=== PATIENT | male | born 1985 | race Caucasian/White ===

== ENCOUNTER 2025-02-16 00:11 | Day surgery (SDC) | payer OTHER, SELFPAY ==
[2025-02-10 08:43] VITALS: BMI 32.1
--- NOTE | 2025-02-10 08:54 | PC.NURSE ---
Addendum entered by Brooks Barajas RN 02/10/25 09:10: Correction, patient told no food or drink after midnight. Original Note: Report to the Outpatient Waiting Room, entrance under the green pavilion located off [facility], at time _0600_ on date _[id number]_. Planned Procedure Time: _729_. Time changes happen often and if your time is changed the preop area will call you the afternoon before. - You and your visitor will be asked to self-screen and do not enter if you have any COVID symptoms. Please call surgeon if you need to reschedule. - A mask is optional within the hospital at this time. Patients may have clear liquids (water, carbonated beverages, clear teas, apple juice) until 3 hours prior to surgery with a maximum of 20 ounces. - No food from midnight until time of surgery and no smoking, or chewing tobacco (or any form of nicotine). No chewing gum, candy or mints. Take only the following medications with a SIP of water on the morning of surgery: ___Pain pill if needed.____ DO NOT STOP ANY OF YOUR OTHER PRESCRIPTION MEDICATIONS PRIOR TO SURGERY EXCEPT THE FOLLOWING Hold all vitamins and supplements for 3 days per anesthesiologist. Celebrex per Dr Verdugo instructions. Medications to discontinue per physician Date to take last kbna__[phone]____ Please no make-up, nail yakut, hairspray, perfume, deodorant, or body powder the day of surgery. No jewelry (including any body piercings) or valuables the day of surgery, leave them at home. Please take a shower or bath the night before, or the morning of, surgery with an antibacterial soap. Wear comfortable, loose fitting clothing. - Jewelry must be removed prior to entering the operating room. Rings and piercings that are not removed may be cut off. - The hospital will not accept responsibility for valuables. - Please leave all valuables, including medications, at home the day of surgery. If you are going home after surgery, a licensed full service vending driver must drive you home. - NO public transportation without another adult if you receive anesthesia. - We recommend that an adult stay with you for 24 hours following discharge. - We also recommend that you do not drive, make important decision, drink alcoholic beverages, or take any drugs that were not prescribed by your health care provider for at least 24 hours after your discharge time. Follow any additional instructions given to you from your surgeon. Telephone instructions given to __Joe___and asked if any additional questions and then verbalized understanding. Patient advised to call surgeon office or pre surgery nurse liaison [phone] if any additional questions.
[2025-02-16] VITALS (7 sets, daily range): BP systolic 114–142; BP diastolic 65–78; PULSE 57–81; RESP 14–20; TEMP 36.7; O2SAT 98–100; BMI 32.1
--- OUTSIDE RECORDS SUMMARY | 2025-02-16 00:14 | XMS_ITS | Clinical Summary ---
Author Organization [facility] Address [address] [place] [address] Phone Care Team Providers Care Tire Changer Name Role Phone Unavailable Primary Care Provider Unavailabl e Allergies No known active allergies Medications doxycycline monohydrate (ORACEA) 40 mg Extended Release 24 hour capsule Take by mouth. Active omeprazole (PriLOSEC) 20 mg Tablet, Delayed Release (E.C.) Take by mouth daily before breakfast. Active vitamin E 200 unit Capsule Take 800 Units by mouth daily. Active zolpidem ER 12.5 mg tablet,extended release,multipha se Take 12.5 mg by mouth Continuous as needed. 2 Active HYDROcodone-acet aminophen (HYCET) 7.5-325 mg/15 mL SolutionIndicati ons:Obesity (BMI 35.0-39.9 without comorbidity) Take 15 mL by mouth every 6 hours as needed for Pain. Max Daily Amount: 60 mL 280 mL 10/29/2022 1:59 PM COMPUTING SYSTEMS MECHANIC 3 Active famotidine (PEPCID) 20 mg tablet Take 1 Tablet (20 mg) by mouth 2 times daily. 60 Tablet 2 10/29/2022 1:59 PM COMPUTING SYSTEMS MECHANIC 3 Active ondansetron (Zofran) 4 mg Tablet Take 1 Tablet (4 mg) by mouth every 8 hours as needed for Nausea/Vomiting . 50 Tablet 10/29/2022 1:59 PM COMPUTING SYSTEMS MECHANIC 3 Active sennosides (SENOKOT) 8.6 mg tablet Take 1 Tablet (8.6 mg) by mouth 1 time daily as needed for Constipation. 10 Tablet 10/29/2022 1:59 PM COMPUTING SYSTEMS MECHANIC 3 Active Active Problems Problem Noted Date Diagnosed Date Lumbago 10/29/2022 Obstructive sleep apnea syndrome 10/29/2022 Obesity with body mass index 30 or greater 10/29 Sacroiliac pain 10/29/2022 Esophageal reflux 10/29/2022 Encounter for gastric sleeve procedure 3 Immunizations Immunization Administration Dates Next Due (M-M-R II/PRIORIX)(12 MO UP) MEASLES, MUMPS AND RUBELLA VIRUS VACCINE, 0.5 ML IM/SUBCUT 06/20/2000,04/29/1995,06/17/1986 (PFIZER GUERLINE)(12 YR UP PRIMA RY SERIES) COVID-19 VACCINE - EMERGENCY USE AUTHORIZATION, MRNA, GUERLINE(PF) 30 MCG/0.3 ML IM SUSP 12/30/2021 (PFIZER)(12 YR UP) COVID-19 VACCINE - EMERGENCY USE AUTHORIZATION, MRNA, [id number](PF) 30 MCG/0.3 ML IM SUSP 09/24/2022,06/28/2021,06/07/2021 (RECOMBIVAX HB/ENGERIX-B)(0- 19 YRS) HEPATITIS B VACCINE 5 MCG/0.5 ML OR 10 MCG/0.5 ML PED OR ADOL 3 DOSE (PF), IM 12/25/2000,06/20/2000,05/09/2000 (TDVAX)(7 YRS UP) TETANUS AN D DIPHTHERIA TOXOIDS, ADSORBED (2 LF OF TETANUS TOXOID AND 2 LF OF DIPHTHERIA TOXOID), 0.5ML (PF), IM 11/16/2011,05/09/2000 Diptheria, Tetanus Toxoids, And Whole Cell Pertussis Vaccine (DTP), for intramuscular use 05/15/1990,02/07/1986,02/15/1985,10/29 INFLUENZA VACCINE QUADRIVALE NT 6 MOS UP CELL DERIVED PF IM 08/18/2020 INFLUENZA VACCINE QUADRIVALE NT 6 MOS UP PF IM 08/03/2019,07/04/2016 Poliovirus Vaccine Live Oral 05/09/2000, 05/09/1990,02/07/1986,02/15,1984 Social History Tobacco Use Types Packs/Day Years Used Date Smoking Tobacco: Former Cigarettes 1 12 Tobacco Cessation:Counseling Given: Not Answered Alcohol Use Standard Drinks/Week Comments Yes 0 (1 standard drink = 0.6 oz pur e alcohol) socially Sex and Gender Information Value Date Recorded Sex Assigned at Not on file Legal Sex Male 1:14 PM CDT Gender Identity Not on file Sexual Orientation Not on file Last Filed Vital Signs Vital Sign Reading Time Taken Comments Blood Pressure 127/65 10/29/2022 11:32 AM COMPUTING SYSTEMS MECHANIC Pulse 76 10/29/2022 11:32 AM COMPUTING SYSTEMS MECHANIC Temperature 36.6 C (97.8 F) 10/29/2022 8:54 AM COMPUTING SYSTEMS MECHANIC Respiratory Rate 16 10/29/2022 11:32 AM COMPUTING SYSTEMS MECHANIC Oxygen Saturation 99% 10/29/2022 11:32 AM COMPUTING SYSTEMS MECHANIC Inhaled Oxygen Concentration - - Weight 139 kg (306 lb 6.4 oz) 10/28/2022 6:00 AM COMPUTING SYSTEMS MECHANIC Height 188 cm (6' 2 ) 10/18/2022 10:05 AM COMPUTING SYSTEMS MECHANIC Body Mass Index 39.34 10/18/2022 10:05 AM COMPUTING SYSTEMS MECHANIC Plan of Treatment Health Maintenance Due Date Last Done Comments DIABETES ANNUAL FOOT EXAM 2002 DIABETES ANNUAL RETINAL EXAM 2002 DIABETES HBA1C Q 6 MONTHS 2002 DIABETES MICROALBUMIN ANNUAL SCREEN 2002 LDL CHOLESTEROL ANNUAL 2002 DTAP/TDAP/TD VACCINES (5 - Tdap) 11/17/2011 11/16/2011, 05/09/2000, 05/15/1990, Additional history exists INFLUENZA VACCINE (#1) 2024 , 08/03/2019, 07/04/2016 COVID-19 Vaccine ( season) 2024 09/24/2022, 12/30/2021, 06/28/2021, Additional history exists HEPATITIS B VACCINES Completed 12/25/2000, 06/20/2000, 05/09/2000 HPV VACCINES Aged Out No longer eligi ble based on patient's age to complete this topic Medical Devices Implanted Type Area Dairy Feed Mixing Operator Device Identifier Shelf Expiration Date Model / Serial / Lot Seamguard Endogia 60 Blk [id number] - [id number] Implanted:Qt y: 1 on 10/28/2022 by Maegan Victoria MD at [facility] N/A: Stomach [employer] [id number] 04/30/2025 12BSGTRI 60B / / [id number] Seamguard Endogia 60 Blk [id number] - [id number] Implanted:Qt y: 1 on 10/28/2022 by Maegan Victoria MD at [facility] N/A: Stomach [employer] [id number] 03/09/2025 12BSGTRI 60B / / [id number] Seamguard Endogia 60 Prpl [id number] - [id number] Implanted:Qt y: 1 on 10/28/2022 by Maegan Victoria MD at [facility] N/A: Stomach [employer] [id number] 06/11/2025 12BSGTRI 60P / / [id number] Seamguard Endogia 60 Prpl [id number] - [id number] Implanted:Qt y: 1 on 10/28/2022 by Maegan Victoria MD at [facility] N/A: Stomach [employer] [id number] 06/11/2025 12BSGTRI 60P / / [id number] Seamguard Endogia 60 Prpl [id number] - [id number] Implanted:Qt y: 1 on 10/28/2022 by Maegan Victoria MD at [facility] N/A: Stomach [employer] [id number] 06/11/2025 12BSGTRI 60P / / [id number] Brick Tender Endoclip Iii 5mm W/Cliplogic [id number] - [id number] Implanted:Qt y: 1 on 10/28/2022 by Maegan Victoria MD at [facility] N/A: Stomach [employer] [id number] 02/26/2025 [id number] / / [id number] Endo Clip Ii 10mm [id number] - [id number] Implanted:Qt y: 1 on 10/28/2022 by Maegan Victoria MD at [facility] N/A: Stomach [employer] [id number] 12/27/2026 [id number] / / [id number] Y Insurance [facility] BENEFIT PLANS RX [facility] [employer] Advance Directives For more information, please contact: [phone] * Full Code (Latest Code Status on File) Date Activated Date Inactivated Comments 10/28/2022 11:06 AM 10/29/2022 4:21 PM * Full Code Date Activated Date Inactivated Comments 10/28/2022 6:14 AM 10/28/2022 11:06 AM
--- OUTSIDE RECORDS SUMMARY | 2025-02-16 00:14 | XMS_ITS | Clinical Summary ---
Author Organization [facility] Address [address] [place] [address] Care Team Providers Care Intrusion Analyst Name Role Phone Unavailable Primary Care Provider Unavailabl e Social History Tobacco Use Types Packs/Day Years Used Date Smoking Tobacco: Never Assessed Sex and Gender Information Value Date Recorded Sex Assigned at Not on file Legal Sex Male 3:16 PM CDT Gender Identity Not on file Sexual Orientation Not on file Plan of Treatment Not on file
[2025-02-16] MEDS: LACTATED RINGERS 1,000 ML 30 ML IV CONT ×2 (06:25→08:45)
--- NOTE | 2025-02-16 06:48 | WPDANESEPPF ---
Anes - Initial Pre Proc Eval Procedure: Operation Date: 02/16/25 07:30 Proposed Procedures p Panniculectomy - Howard Petersen MD Date/Time: 02/16/25 06:48 Surgeon: Howard Petersen MD Pre Op Diagnosis: excess skin, s/p bariactic surgery Patient Data Age: 39 Gender: M Height: 1.88 m Weight: 113.6 kg Last Vital Signs Temp 36.7 C 02/16/25 06:11 Pulse 57 L 02/16/25 06:11 Resp 16 02/16/25 06:11 BP 114/66 02/16/25 06:11 Pulse Ox 100 02/16/25 06:11 O2 Del Method Room Air 02/16/25 06:11 Allergies Allergy/AdvReac Type Severity Reaction Status Date / Time No Known Allergies Allergy Verified 02/16/25 06:22 Home Medications Medication Instructions Recorded Confirmed Type celecoxib 200 mg capsule 200 mg PO HS 02/10/25 02/16/25 History cranitine 1 tbsp PO DAILY 02/10/25 02/10/25 History creatine monohydrate 5,000 mg oral 5,000 mg PO DAILY 02/10/25 02/16/25 History powder packet cyanocobalamin (vitamin B-12) 1,000 mcg PO DAILY 02/10/25 02/10/25 History 1,000 mcg tablet (Vitamin B-12) diphenhydramine HCl 25 mg capsule 25 mg PO HS 02/10/25 02/16/25 History (Aler-Cap) doxycycline monohydrate 40 mg 40 mg PO DAILY 02/10/25 02/16/25 History capsule,immediate - delay release (Oracea) hydrocodone 5 mg-acetaminophen 325 1 tablet PO Q6H PRN pain 02/10/25 02/10/25 History mg tablet magnesium glycinate 100 mg (as 800 mg PO DAILY 02/10/25 02/16/25 History glycinate) tablet (Mag Glycinate) rlpxlxyt-cmdezvrg-wkil 45 mg-folic 1 cap PO DAILY 02/10/25 02/16/25 History acid 800 mcg-vit K 120 mcg capsule (Bariatric Multivitamins) nutrafol 4 cap PO HS 02/10/25 02/16/25 History omeprazole 20 mg capsule,delayed 20 mg PO HS 02/10/25 02/16/25 History release testosterone enanthate 75 mg/0.5 75 mg subcut WEEKLY 02/10/25 02/16/25 History mL subcutaneous auto-injector (Xyosted) Patient hx anesthesia problems: none Family hx anesthesia problems: none Results Review: All pre-operative results and documents have been reviewed as part of the pre-operative evaluation. [facility] Social History Social History Smoking status: Never smoker Tobacco type: cigarettes Alcohol intake: current Anes - Eval Final PreProcedure Day of Procedure 02/16/25 06:48 Patient weight: obese Heart: regular rate and rhythm Lungs: clear to auscultation Airway: Mallampati scale class II Neurological: alert and oriented Last oral intake: >/= 8 hours ASA classification: II Emergent: no Anesthetic plan: proceed Anesthesia type and monitoring: general LMA and standard monitoring Results Review: All pre-operative results and documents have been reviewed as part of the pre-operative evaluation. Informed Consent: The patient's anesthetic plan and its attendant risks and benefits were discussed with the patient/family/POA. Questions were solicited and answers provided to the satisfaction of the patient/family/POA.
--- NOTE | 2025-02-16 06:50 | WPDHPUPDATE1 ---
History and Physical Update Update Date/Time: 02/16/25 06:50 Patient seen and examined in pre-operative holding area. No interval change in medical history or symptoms. Patient remembers previous discussion of benefits and alternatives to procedure. Continues to desire to proceed with infraumbilical panniculectomy. I reviewed the risks including but not limited to bleeding ,infection, asymmetry, undesireable cosmetic appearance, partial/total skin/umbilicus loss, no change or worsening of symptoms, change in sensation, seroma. I discussed the possible use of assistants and their level of participation in the case. Patient stated understanding and signed the consent form wishing to proceed
--- NOTE | 2025-02-16 06:51 | P.OP_ITS ---
Procedure Note - Detailed Date of Procedure 02/16/25 Pre-op Diagnosis excess skin, s/p bariactic surgery Post-op Diagnosis Same Procedure Performed infraumbilical panniculectomy and excision excess skin/tissue hips/flanks Surgeon Howard Petersen MD Electric Meter Repairer Helper leslee dunaway pa-c Anesthesia General Description of Procedure Patient was seen in the preoperative holding area where the consent form was signed and initial markings the pannicular skin fold were marked along with the anterior superior iliac spines with the patient standing. Patient was taken back to the operating room placed on the table in the supine position. Time-out was performed with Anesthesia, surgeon, and staff agreeing on patient's name, site, and surgery to be performed. SCDs were placed on the lower extremities and inflated. Antibiotics were given IV. After general anesthesia was administered the abdomen was prepped and draped in usual sterile fashion. I further designed my skin incisions starting 9 cm above the base of the penis and upward stretch extending horizontally and then taking this superolaterally past the anterior superior iliac spines for planned removal of the excess skin and subcutaneous tissue that extended to the lateral hips and flank area bilaterally in addition to the infraumbilical pannus. I made this incision with 10 blade scalpel through skin and dermis. Bovie cautery was used to dissect through subcutaneous tissue down to rectus fascia. I proceeded with elevating this pannicular skin flap below the umbilicus. I irrigated with normal saline. Hemostasis with Bovie cautery. Using Montezuma clamps to push the inferior skin flap superiorly I marked out the amount of resection for the superior skin flap. This was incised with 10 blade scalpel and excised with Bovie cautery. The specimen [id number]. Montezuma clamps were used to provisionally fix all this skin flap. Ten JPS were placed along the incision coming out laterally and secured with 3-0 nylon drain stitch. 3-0 V lock suture was used for Calista's fascia. 2-0 Vicryl was used further for Calista's fascia and dermal closure. 4- 0 Monocryl was used for subcuticular closure. There was good symmetry to each side of the skin flap. I injected 20 cc of 1% lidocaine with epinephrine and 0.5% Marcaine plain along the incision. A dressing of Mastisol, Steri-Strips, 4 x 4, ABDs and an abdominal binder were applied. The drains were hooked to bulb suction. The patient was awakened from anesthesia and transferred to the recovery room in stable condition. Complications: None Estimated blood loss: 30 cc Disposition: Patient tolerated the procedure well and will be going home later today Leslee Dunaway PA-C was essential for positioinig, retraction, hemostasis, closure and dressing placement G Billing Surgery - Charge Forward: Surgery Billing ([id number], 59 same for leslee adding modifier )
[2025-02-16] MEDS: SCOPOLAMINE 1 MG PATCH 1 PATCH TRANSDERM (07:00)
[2025-02-16] MEDS: BUPivacaine HCL 0.5% PF 30 ML VIAL INFILTRATE (07:35)
[2025-02-16] MEDS: ceFAZolin 2 GM/D5W 50 ML 2 GM/50 ML BAG IVPB (07:35)
[2025-02-16] MEDS: LIDO 1%/EPINEPHRINE 1:100,000 50 ML VIAL 30 ML INFILTRATE (08:15)
[2025-02-16] MEDS: fentaNYL CITRATE INJ (*CRX) 100 MCG/2 ML VIAL 25 MCG IV PUSH ×8 (09:03→09:19)
[2025-02-16] MEDS: oxyCODONE HCL (*CRX) 5 MG TAB IR PO (09:49)
== END 2025-02-16 10:20 | disposition home or self-care (01) ==
PROVIDERS: Visit Provider Plastic Surgery
PROC: 0JB80ZZ Excision of Abdomen Subcutaneous Tissue and Fascia, Open Approach (ICD-10-PCS; CPT 15830; principal; 2025-02-16 07:30)
DX: L98.7 Excessive and redundant skin and subcutaneous tissue (principal); Z98.84 Bariatric surgery status; E66.9 Obesity, unspecified; Z68.32 Body mass index [BMI] 32.0-32.9, adult
CPT/HCPCS: 15830; 15834; 88300; A9270; J0690; J1100; J1171; J2003; J2004; J2250; J2405; J2704; J3010; J7120

== ENCOUNTER 2025-06-22 01:52 | Day surgery (SDC) | payer OTHER, SELFPAY ==
--- NOTE | 2025-06-15 12:36 | PC.NURSE ---
Report to the Outpatient Waiting Room, entrance under the green pavilion located off [facility], at time _0700_ on date _[id number]_. Planned Procedure Time: _0900_.? Time changes happen often and if your time is changed the preop area will call you the afternoon before. - You and your visitor will be asked to self-screen and do not enter if you have any COVID symptoms. Please call surgeon if you need to reschedule. - A mask is optional within the hospital at this time. Patients may have clear liquids (water, carbonated beverages, clear teas, apple juice) until 3 hours prior to surgery with a maximum of 20 ounces. - No food from midnight until time of surgery and no smoking, or chewing tobacco (or any form of nicotine). No chewing gum, candy or mints. Take only the following medications with a SIP of water on the morning of surgery: __None DO NOT STOP ANY OF YOUR OTHER PRESCRIPTION MEDICATIONS PRIOR TO SURGERY EXCEPT THE FOLLOWING Hold all vitamins and supplements for 3 days per anesthesiologist. Medications to discontinue per physician Date to take last wptq___[phone]___ Please no make-up, nail vatican citizen, hairspray, perfume, deodorant, or body powder the day of surgery.? No jewelry (including any body piercings) or valuables the day of surgery, leave them at home.? Please take a shower or bath the night before, or the morning of, surgery with an antibacterial soap.? Wear comfortable, loose fitting clothing.? - Jewelry must be removed prior to entering the operating room.? Rings and piercings that are not removed may be cut off. - The hospital will not accept responsibility for valuables.? - Please leave all valuables, including medications, at home the day of surgery. If you are going home after surgery, a licensed otr truck driver must drive you home.? - NO public transportation without another adult if you receive anesthesia. - We recommend that an adult stay with you for 24 hours following discharge. - We also recommend that you do not drive, make important decision, drink alcoholic beverages, or take any drugs that were not prescribed by your health care provider for at least 24 hours after your discharge time. Follow any additional instructions given to you from your surgeon. Telephone instructions given to __Joseph__and asked if any additional questions and then verbalized understanding. Patient advised to call surgeon office or pre surgery nurse liaison [phone] if any additional questions.
[2025-06-15 12:45] VITALS: BMI 32.1
--- NOTE | 2025-06-15 12:52 | PC.NURSE ---
Report to the Outpatient Waiting Room, entrance under the green pavilion located off [facility], at time _0700_ on date _[id number]_. Planned Procedure Time: _0900_.? Time changes happen often and if your time is changed the preop area will call you the afternoon before. - You and your visitor will be asked to self-screen and do not enter if you have any COVID symptoms. Please call surgeon if you need to reschedule. - A mask is optional within the hospital at this time. - No food or drink from midnight until time of surgery and no smoking, or chewing tobacco (or any form of nicotine). No chewing gum, candy or mints. Take only the following medications with a SIP of water on the morning of surgery: __None DO NOT STOP ANY OF YOUR OTHER PRESCRIPTION MEDICATIONS PRIOR TO SURGERY EXCEPT THE FOLLOWING Hold all vitamins and supplements for 3 days per anesthesiologist. Medications to discontinue per physician Date to take last nwzx___[phone]___ Please no make-up, nail equatorial guinean, hairspray, perfume, deodorant, or body powder the day of surgery.? No jewelry (including any body piercings) or valuables the day of surgery, leave them at home.? Please take a shower or bath the night before, or the morning of, surgery with an antibacterial soap.? Wear comfortable, loose fitting clothing.? - Jewelry must be removed prior to entering the operating room.? Rings and piercings that are not removed may be cut off. - The hospital will not accept responsibility for valuables.? - Please leave all valuables, including medications, at home the day of surgery. If you are going home after surgery, a licensed bulk truck driver must drive you home.? - NO public transportation without another adult if you receive anesthesia. - We recommend that an adult stay with you for 24 hours following discharge. - We also recommend that you do not drive, make important decision, drink alcoholic beverages, or take any drugs that were not prescribed by your health care provider for at least 24 hours after your discharge time. Follow any additional instructions given to you from your surgeon. Telephone instructions given to __Joseph__and asked if any additional questions and then verbalized understanding. Patient advised to call surgeon office or pre surgery nurse liaison [phone] if any additional questions.
[2025-06-22] VITALS (14 sets, daily range): BP systolic 116–158; BP diastolic 58–77; PULSE 62–82; RESP 12–18; TEMP 36.1–36.6; O2SAT 97–100; BMI 31.9
--- OUTSIDE RECORDS SUMMARY | 2025-06-22 01:56 | XMS_ITS | Patient Health Record ---
Author Organization [facility] Address [address] [place], [place] [id number] Care Team Providers Care Hogshead Head Matcher Name Role Phone TANG SHEPARD Unavailable [phone] Maritza Nava Unavailable Unavailable Reason For Referral No Information Medications Medication SIG (Take, Route, Frequency, Duration) Notes Start Date End Date Status acetaminophen 325 MG / hydrocodone bitartrate 5 MG Oral Tablet [Tippecanoe] ORAL acetaminophen 325 MG / hydrocodone bitartrate 5 MG Oral Tablet [Tippecanoe]Original Medicationacetaminophen 325 MG / hydrocodone bitartrate 5 MG Oral Tablet [Tippecanoe] *Reorder from Shoutly for eRx and Interaction Libby 7 Active Plan Of Treatment No Information Insurance Providers Payer Name Payer Address Payer Phone Subscriber Number Group Number Insured Name Patient Relationship to Insured Coverage Start Date [facility]age End Date [facility] [address] [place], [place] [id number] MICHELLE CARRASCO Self - patient is the insured
--- OUTSIDE RECORDS SUMMARY | 2025-06-22 01:56 | XMS_ITS | Clinical Summary ---
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 Gender Identity Not on file Sexual Orientation Not on file Plan of Treatment Health Maintenance Due Date Last Done Comments Annual Physical 1987 DTaP, Tdap and Td Vaccines (5 - Tdap) 05/10/2000 05/09/2000, 05/15/1990, 02/07/1986, Additional history exists Hepatitis C 2002 HPV Vaccines (1 - 3-dose SCDM series) 2011 COVID-19 Vaccine ( season) 2025 Hepatitis B Vaccines Completed 12/25/2000, 06/20/2000, 05/09/2000 Meningococcal B Vaccine Aged Out No l onger eligible based on patient's age to complete this topic Meningococcal Vaccine Aged Out No riley lori eligible based on patient's age to complete this topic Pneumococcal Vaccine: Pediatrics (0 to 5 Years) and At-Risk Patients (6 to 49 Years) Aged Out No longer eligible based on patient's age to complete this topic RSV Immunizations Under 20 Months Aged Out No longer eligible based on patient's age to complete this topic Insurance [employer] [facility] Care Teams Specialist Physicians Relationship Specialty Start Date End Date Maritza Nava NP [address] [place] [address] PCP - General FAMILY PRACTICE 02/28/20
--- OUTSIDE RECORDS SUMMARY | 2025-06-22 01:56 | XMS_ITS | Patient Health Record ---
Author Organization [facility] Address [address] [place] [address] Support Name Relationship Address Phone Edwin Younger Guarantor Unknown [phone] Reason For Referral No Information Medications Medication SIG (Take, Route, Frequency, Duration) Notes Start Date End Date Status Suprep Bowel Prep Kit 17.5-3.13-1.6 GM/180ML *please review for potential update for e-prescription and drug interaction check* SUPREP BOWEL PREP KIT 17.5 GRAM-3.13 GRAM-1.6 GRAM ORAL SOLUTION 07/28/2017 Active Plan Of Treatment No Information Insurance Providers Payer Name Payer Address Payer Phone Subscriber Number Group Number Insured Name Patient Relationship to Insured Coverage Start Date Coverage End Date [facility] [address] [place] [address] [id number] Edwin Younger Self - patient is the insured
--- OUTSIDE RECORDS SUMMARY | 2025-06-22 01:56 | XMS_ITS | Clinical Summary ---
Author Organization [facility] Address [address] [place] [address] Care Team Providers Care Jailer/Training Officer Name Role Phone Unavailable Primary Care Provider [...]
--- NOTE | 2025-06-22 06:50 | WPDHPUPDATE1 ---
History and Physical Update Update Date/Time: 06/22/25 06:50 Patient seen and examined in pre-operative holding area. No interval change in medical history or symptoms. Patient remembers previous discussion of benefits and alternatives to procedure. Continues to desire to proceed with bilateral breast reduction with mastopexy and lateral torsoplasty . I reviewed the risks including but not limited to bleeding ,infection, asymmetry, undesireable cosmetic appearance, partial/total skin/nipple loss, no change or worsening of symptoms, change in sensation. I discussed the possible use of assistants and their level of participation in the case. Patient stated understanding and signed the consent form wishing to proceed
--- NOTE | 2025-06-22 06:51 | P.OP_ITS ---
Procedure Note - Detailed Date of Procedure 06/22/25 Pre-op Diagnosis excessive and redundant skin of chest and upper torso Post-op Diagnosis Same Procedure Performed b/l mastopexy and upper lateral torsoplasty Surgeon Howard Petersen MD Isotope Technologist leslee dunaway pa-c Anesthesia General Description of Procedure Patient was seen in the preoperative holding area where the breasts and lateral torso were marked and the consent form was signed. Patient was taken back to the operating room placed on the table in the supine position. Time-out was performed with Anesthesia, surgeon, and staff agreeing on patient's name, site, and surgery be performed. SCDs were placed on the lower extremities and inflated. Antibiotics were given IV. After general anesthesia was administered the breasts and arms were prepped and draped in the usual sterile fashion. I took my attention first to the right breast where I used a 38 mm nipple Sizer to circumscribe the nipple-areolar complex. I proceeded to de epithelializing a 12 cm wide inferior pedicle. I made my inferior skin incision along the inframammary fold continuing laterally just behind the anterior axillary line up to the axillary dome through skin and dermis. Bovie cautery was used to continue my skin incision and I elevated the superior skin flap and Steven's plain just below the clavicle. I proceeded with resecting 80 g of tissue from the right breast leaving a 1-1/2 cm thick inferior pedicle with the nipple intact. Using Bovie cautery I also elevated the subcutaneous excess tissue on the lateral torso. This was marked under tension to determine amount of resection. This was then resected with 10 blade scalpel and Bovie cautery. extrea torso skin and tissue resected was 400grams.. I irrigated with normal saline. Ten Iraqi drain was placed. Provisional closure was done with spencer and dog ears and skin was further trimmed appropriately. Closure with 2-0 and 3-0 Vicryl for dermis was performed nipple was brought out 1.5 cm above the inframammary fold just lateral to midline in appropriate position using 15 blade scalpel and Bovie cautery to resect this portion of the skin flap. The nipple was sutured into place with 3-0 Vicryl suture and 4-0 chromic suture. 4-0 Monocryl was used for subcuticular closure of the inframammary fold and torso plasty. 20 cc of 1% lidocaine with epinephrine and 0.5% Marcaine plain were then injected along the inframammary fold and anterior axillary line. The nipple appeared viable with good cap refill and there was good contour to the chest and torso. Next I turned my attention to the left breast where the same procedure was performed.I used a 38 mm nipple Sizer to circumscribe the nipple-areolar complex. I proceeded to de epithelializing a 12 cm wide inferior pedicle. I made my inferior skin incision along the inframammary fold continuing laterally just behind the anterior axillary line up to the axillary dome through skin and dermis. Bovie cautery was used to continue my skin incision and I elevated the superior skin flap and Steven's plain just below the clavicle. I proceeded with resecting 107 g of tissue from the right breast leaving a 1-1/2 cm thick inferior pedicle with the nipple intact. Using Bovie cautery I also elevated the subcutaneous excess tissue on the lateral torso. This was marked under tension to determine amount of resection. This was then resected with 10 blade scalpel and Bovie cautery. I resected an additional 265grams of tissue from left torso. I irrigated with normal saline. Ten Iraqi drain was placed. Provisional closure was done with spencer and dog ears and skin was further trimmed appropriately. Closure with 2-0 and 3-0 Vicryl for dermis was performed nipple was brought out 1.5 cm above the inframammary fold just lateral to midline in appropriate position using 15 blade scalpel and Bovie cautery to resect this portion of the skin flap. The nipple was sutured into place with 3- 0 Vicryl suture and 4-0 chromic suture. 4-0 Monocryl was used for subcuticular closure of the inframammary fold and torso plasty. 20 cc of 1% lidocaine with epinephrine and 0.5% Marcaine plain were then injected along the inframammary fold and anterior axillary line. The nipple appeared viable with good cap refill and there was good contour to the chest and torso. The drains were hooked to bulb suction. There was good symmetry between both breasts and lateral torso plasty. A dressing of Mastisol, Steri-Strips, 4 x 4, ABDs and a chest binder was then applied. The patient was awakened from anesthesia and transferred to the recovery room in stable condition. Complications: None Estimated blood loss: 30 cc Disposition: Patient tolerated the procedure well and will go home later today Leslee Dunaway PA-C was essential for positioning, retraction, closure and dressing placement [facility] Billing Surgery - Charge Forward: Surgery Billing ([id number] same for leslee adding )
[2025-06-22] MEDS: LACTATED RINGERS 1,000 ML 30 ML IV CONT ×2 (07:45→11:50)
[2025-06-22] MEDS: ACETAMINOPHEN 500 MG TABLET 1000 MG PO (07:48)
--- NOTE | 2025-06-22 07:56 | WPDANESEPPF ---
Anes - Initial Pre Proc Eval Procedure: Operation Date: 06/22/25 09:00 Proposed Procedures p Bilateral Breast Reduction with Mastopexy, - Howard Petersen MD s Lateral Torsoplasty - Howard Petersen MD Date/Time: 06/22/25 07:56 Surgeon: Howard Petersen MD Pre Op Diagnosis: excessive and redundant skin of abdomen Patient Data Age: 39 Gender: M Height: 1.88 m Weight: 113.6 kg Allergies Allergy/AdvReac Type Severity Reaction Status Date / Time No Known Allergies Allergy Verified 06/15/25 12:42 Home Medications ?Medication ?Instructions ?Recorded ?Confirmed ?Type celecoxib 200 mg capsule 200 mg PO HS 02/10/25 06/15/25 History cranitine 1 tbsp PO DAILY 02/10/25 06/15/25 History creatine monohydrate 5,000 mg oral 5,000 mg PO DAILY 02/10/25 06/15/25 History powder packet cyanocobalamin (vitamin B-12) 1,000 mcg PO DAILY 02/10/25 06/15/25 History 1,000 mcg tablet (Vitamin B-12) diphenhydramine HCl 25 mg capsule 25 mg PO HS 02/10/25 06/15/25 History (Aler-Cap) doxycycline monohydrate 40 mg 40 mg PO DAILY 02/10/25 06/15/25 History capsule,immediate - delay release (Oracea) Held on 02/16/25. Instructions: Resume on 02/23/25. hydrocodone 5 mg-acetaminophen 325 1 tablet PO Q6H PRN pain 02/10/25 06/15/25 History mg tablet yihgwyot-szksjbcd-vpra 45 mg-folic 1 cap PO DAILY 02/10/25 06/15/25 History acid 800 mcg-vit K 120 mcg capsule (Bariatric Multivitamins) nutrafol 4 cap PO HS 02/10/25 06/15/25 History omeprazole 20 mg capsule,delayed 20 mg PO HS 02/10/25 06/15/25 History release testosterone enanthate 75 mg/0.5 75 mg subcut WEEKLY 02/10/25 06/15/25 History mL subcutaneous auto-injector (Xyosted) Patient hx anesthesia problems: none Family hx anesthesia problems: none Results Review: All pre-operative results and documents have been reviewed as part of the pre-operative evaluation. [facility] Social History Social History Smoking packs per day: 1 Smoking cigarettes per day: 20.0 Years smoked: 13 Smoking pack-years: 13.00 Smoking status: Former smoker Tobacco type: cigarettes Smoking end date: 03/13/14 Alcohol intake: current Living arrangements: with family Spiritual care concerns: No Anes - Eval Final PreProcedure Day of Procedure 06/22/25 07:56 Patient weight: obese Lungs: normal air movement Airway: Mallampati scale class II and special considerations (Upper dentures, lower in poor repair, none loose. ) Neurological: alert and oriented Last oral intake: >/= 8 hours ASA classification: II Emergent: no Anesthetic plan: proceed Anesthesia type and monitoring: general ETT and standard monitoring Results Review: All pre-operative results and documents have been reviewed as part of the pre-operative evaluation. BMI 32, ex smoker, quit 2012, 10 pack years. No longer on CPAP since wt loss. Informed Consent: The patient's anesthetic plan and its attendant risks and benefits were discussed with the patient/family/POA. Questions were solicited and answers provided to the satisfaction of the patient/family/POA.
[2025-06-22] MEDS: ceFAZolin 2 GM in SODIUM CHLORIDE 0.9% IV 50 ML 100 ML IVPB (09:08)
--- NOTE | 2025-06-22 09:56 | S_PTH ---
PATIENT: Edwin Younger LOC: [facility] U#:[id number] AGE/SX: 39/M ROOM: RE06/22/[address]: Howard Petersen MD : 1985 BED: DIS: 06/22/2025 SPEC #: [id number] RECD: 06/22/25 11:43 STATUS: HAZEL REQ #: [id number] MIKE: 06/22/25 09:[address]: Howard Petersen DEPT: [facility] Surgical RECD BY: Maryse Ruiz Tissues: A - Breast Reduction B - Breast Reduction C - Breast Reduction D - Breast Reduction Procedures: Hematoxylin and Eosin Stain Gross and Microscopic Level 4
[2025-06-22] MEDS: LIDO 1%/EPINEPHRINE 1:100,000 20 ML VIAL 10 ML INFILTRATE (11:05)
[2025-06-22] MEDS: fentaNYL CITRATE INJ (*CRX) 100 MCG/2 ML VIAL 25 MCG IV PUSH ×8 (11:55→12:19)
[2025-06-22] MEDS: HYDROmorphone HCL INJ (*CRX) 1 MG/ML SYR 0.2 MG IV PUSH ×5 (12:27→12:48)
[2025-06-22] MEDS: diazePAM INJ (*CRX) 10 MG/2 ML SYRINGE 2 MG IV PUSH ×2 (12:59→13:21)
[2025-06-22] MEDS: oxyCODONE HCL (*CRX) 5 MG TAB IR PO (14:00)
--- NOTE | 2025-06-24 05:10 | WPDPN ---
Progress Note: A&P Assessment and Plan (1) Hematoma of breast following procedure: Status: Acute Assessment and Plan: 39yo male pOD#2 s/p b/l male breast reduction and lateral torsoplasty with right breast active hematoma. discussed impression and Dx and recommendation for OR exploration, evacuation and hemostasis. discussed procedure, post-op expectations and risks. Reviewed risks including but not limited to bleeding ,infection, asymmetry, undesireable cosmetic appearance, partial/total skin/nipple loss, no change or worsening of symptoms, change in sensation. pt signed consent stating understanding and wishing to proceed Subjective Date/time seen: 06/24/25 05:10 Review of Systems Review of Systems: received page from [place] [facility] after 12pm noting patient presented with hypotension and right side chest pain and increased drainage since 8pm. hgb went from 11 to 8 and was transfused 1 unit and after speaking with me transferred to [place] [facility] for further eval and mgmt. advised increase compression and ice packs for transport. outside CT scan reports large right chest hematoma upon arrival to [place] ED, patient stable, but with persistent >200ml output right drain and pain and tense right breast. pt. seen and examined at bedside. pt notably uncomfortable with tense, sweollen right chest. nipple viable. Objective Data Intake/Output Intake/Output: Intake & Output 06/21/25 06/22/25 06/23/25 06/24/25 23:59 23:59 23:59 23:59 Intake Total 550 Output Total 118 Balance 432
--- NOTE | 2025-06-24 05:15 | WPDHPUPDATE1 ---
History and Physical Update Update Date/Time: 06/24/25 05:15 Patient seen and examined in pre-operative holding area. No interval change in medical history or symptoms. Patient remembers previous discussion of benefits and alternatives to procedure. Continues to desire to proceed with right breast exploration and hematoma evacuation. I reviewed the risks including but not limited to bleeding ,infection, asymmetry, undesireable cosmetic appearance, partial/total skin/nipple loss, no change or worsening of symptoms, change in sensation. I discussed the possible use of assistants and their level of participation in the case. Patient stated understanding and signed the consent form wishing to proceed
== END 2025-06-22 15:00 | disposition home or self-care (01) ==
PROVIDERS: Visit Provider Plastic Surgery
PROC: 0HBV0ZZ Excision of Bilateral Breast, Open Approach (ICD-10-PCS; CPT 19318; principal; 2025-06-22 09:00)
PROC: (CPT 19316; 2025-06-22 09:00)
DX: L98.7 Excessive and redundant skin and subcutaneous tissue (principal); Z87.891 Personal history of nicotine dependence; E66.9 Obesity, unspecified; Z68.31 Body mass index [BMI] 31.0-31.9, adult
CPT/HCPCS: 19316; 15839; 88305; J0690; A9270; J1100; J1171; J2003; J2004; J2250; J2405; J2704; J3010; J3360; J7120

== ENCOUNTER 2025-06-24 04:26 | Day surgery (SDC) | payer OTHER, SELFPAY ==
--- NOTE | 2020-06-24 05:10 | PN_ITS ---
This report was moved to the correct visit, [id number] on 07/04/2025. Original report was Dictated by Howard Hunter MD on 06/24/2025 0515. Progress Note: A&P Assessment and Plan (1) Hematoma of breast following procedure: Status: Acute Assessment and Plan: 39yo male pOD#2 s/p b/l male breast reduction and lateral torsoplasty with right breast active hematoma. discussed impression and Dx and recommendation for OR exploration, evacuation and hemostasis. discussed procedure, post-op expectations and risks. Reviewed risks including but not limited to bleeding ,infection, asymmetry, undesireable cosmetic appearance, partial/total skin/nipple loss, no change or worsening of symptoms, change in sensation. pt signed consent stating understanding and wishing to proceed Subjective Date/time seen: 06/24/25 05:10 Review of Systems Review of Systems: received page from [facility] after 12pm noting patient presented with hypotension and right side chest pain and increased drainage since 8pm. hgb went from 11 to 8 and was transfused 1 unit and after speaking with me transferred to [facility] for further eval and mgmt. advised increase compression and ice packs for transport. outside CT scan reports large right chest hematoma upon arrival to [facility], patient stable, but with persistent >200ml output right drain and pain and tense right breast. pt. seen and examined at bedside. pt notably uncomfortable with tense, sweollen right chest. nipple viable. Objective Data Intake/Output Intake/Output: Intake & Output 06/21/25 06/22/25 06/23/25 06/24/25 23:59 23:59 23:59 23:59 Intake Total 550 Output Total 118 Balance 432 Please be advised this is a medical document. It is intended for [id number]-oeud communication. It is written in medical language and may contain unfamiliar abbreviations or verbiage. Medical documents are intended to carry relevant information, facts as evident, and the clinical opinion of the practitioner at the time of the encounter. This report may have been done utilizing a voice recognition system. Attempts have been made to correct errors. However, there may be uncorrected grammatical, spelling, and recognition errors present. The file time of this note does not necessarily represent the time the patient was seen. Report Initialized date/time: Howard Petersen MD 06/24/25 0515 Electronically signed by: Howard Petersen MD 06/24/25 0515
[2025-06-24] VITALS (29 sets, daily range): BP systolic 103–133; BP diastolic 48–82; PULSE 75–107; RESP 12–31; TEMP 36.9–37.1; O2SAT 96–100
--- NOTE | ~2025-06-24 | XR_ITS ---
Examination: XR chest 1V portable Clinical History: post op bleeding, right chest hematoma Comparison: None Technique: Portable AP Findings: Heart size normal. Lungs clear. No acute bony abnormality. IMPRESSION: 1. No acute cardiopulmonary findings given portable technique. Reviewed, dictated and finalized at location R.
--- NOTE | 2025-06-24 04:35 | ED.RECABL ---
HPI - Recheck/Abnormal Lab/Rx General Chief Complaint: Recheck/Abnormal Lab/Rx Stated Complaint: R CHEST WALL HEMATOMA/DR. BUTCHER PT History of Present Illness HPI narrative: 39-year-old male presenting for postop complication. He underwent plastic surgery with Dr. Petersen for torso plasty on 06/22. Since this procedure patient has been complaining of excessive pain in his right chest and excessive blood coming out of his ANAT drains. Patient went to outside hospital at [facility] where he was evaluated in the emergency department. Patient was transferred here as a direct ER to ER transfer with sending provider Dr. Landers. We spoke over the phone prior to initiation of transfer. Patient was found to be acutely anemic and requiring blood transfusion as well as pain control medications. He was found to have right chest hematoma on CT scan which I do not have access to imaging of. Plastic surgery Dr. Petersen was made aware of patient's presence at outside hospital and recommended transfer to our ER for his evaluation and further recommendations and treatment. I spoke to Dr. Petersen during the transfer process and prior to patient's arrival. Patient placed in the room 14 for evaluation and further resuscitation. Patient complaining of chest pain on the right side where his hematoma is localized to. No shortness of breath. No nausea but he did get a mg of Zofran prior to arrival. No abdominal pain, fever, chills. Related Data Home Medications ?Medication ?Instructions ?Recorded ?Confirmed ?Last Taken ?Type celecoxib 200 mg capsule 200 mg PO HS 02/10/25 06/22/25 06/21/25 History cranitine 1 tbsp PO DAILY 02/10/25 06/22/25 06/18/25 History creatine monohydrate 5,000 mg oral 5,000 mg PO DAILY 02/10/25 06/22/25 06/18/25 History powder packet cyanocobalamin (vitamin B-12) 1,000 mcg PO DAILY 02/10/25 06/22/25 06/18/25 History 1,000 mcg tablet (Vitamin B-12) diphenhydramine HCl 25 mg capsule 25 mg PO HS 02/10/25 06/22/25 06/21/25 History (Aler-Cap) doxycycline monohydrate 40 mg 40 mg PO DAILY 02/10/25 06/15/25 02/15/25 History capsule,immediate - delay release (Oracea) Held on 06/22/25. Instructions: Resume on 06/27/25. hydrocodone 5 mg-acetaminophen 325 1 tablet PO Q6H PRN pain 02/10/25 06/15/25 Unknown History mg tablet autyxajt-hqoxydyr-vvvo 45 mg-folic 1 cap PO DAILY 02/10/25 06/22/25 06/18/25 History acid 800 mcg-vit K 120 mcg capsule (Bariatric Multivitamins) nutrafol 4 cap PO HS 02/10/25 06/22/25 06/18/25 History omeprazole 20 mg capsule,delayed 20 mg PO HS 02/10/25 06/22/25 06/21/25 History release testosterone enanthate 75 mg/0.5 75 mg subcut WEEKLY 02/10/25 06/15/25 02/07/25 History mL subcutaneous auto-injector (Xyosted) Allergies Allergy/AdvReac Type Severity Reaction Status Date / Time No Known Allergies Allergy Verified 06/22/25 08:03 Review of Systems Review of Systems: As reviewed above in [facility] Past Medical History Medical History (Updated 06/24/25 @ 06:46 by Khurram Aaron MD) Obesity (BMI 30-39.9) Social History Social History Smoking packs per day: 1 Smoking cigarettes per day: 20.0 Years smoked: 13 Smoking pack-years: 13.00 Smoking status: Former smoker Tobacco type: cigarettes Smoking end date: 03/13/14 Alcohol intake: current Living arrangements: with family Spiritual care concerns: No Exam Narrative: GENERAL: [Well-appearing, well-nourished, and in no acute distress.] HEAD: [Normocephalic, atraumatic.] EYES: [PERRLA and EOMI.] ENT: Nares clear, no rhinorrhea or epistaxis. Mucous membranes moist. NECK: Supple. CHEST: Tense thoracic wall hematoma on the right lateral chest with skin discoloration and bruising. Lateral incision sites from surgery appear slightly dehisced. Bleeding from the lateral chest wall as well as into the ANAT drains both right and left-sided. 100 cc and right ANAT, 75cc in left. Tenderness to palpation. No crepitus but compartments are tense. Left chest wall appears dry with no further bleeding and incision sites appear clean and dry without any signs of infection. HEART: [Regular rate and rhythm]. No murmur heard. [Normal peripheral pulses.] ABDOMEN: [Soft, nondistended], [nontender], [No rigidity or guarding] EXTREMITIES: Normal range of motion. [No edema.] SKIN: Warm, dry, no rash. NEURO: [No focal deficits]. Alert and oriented [x3.] PSYCH: [Normal mood and affect.] Course Vital Signs Vital signs: Vital Signs Pulse Rate 107 H 06/24/25 04:07 Respiratory Rate 26 H 06/24/25 04:07 Blood Pressure 126/74 06/24/25 04:07 Pulse Oximetry 100 06/24/25 04:07 Oxygen Delivery Room Air 06/24/25 04:07 Temperature 37.1 C 06/24/25 05:45 Pulse Rate 87 06/24/25 05:46 Respiratory Rate 28 H 06/24/25 05:46 Blood Pressure 122/68 06/24/25 05:46 Pulse Oximetry 99 06/24/25 05:46 Oxygen Delivery Room Air 06/24/25 04:07 MDM - Recheck/Abnormal Lab/Rx MDM Narrative Medical decision making narrative: 39-year-old male presenting for postop complication. He underwent plastic surgery with Dr. Petersen for torso plasty on 06/22. Since this procedure patient has been complaining of excessive pain in his right chest and excessive blood coming out of his ANAT drains. Patient went to outside hospital at [facility] where he was evaluated in the emergency department. Patient was transferred here as a direct ER to ER transfer with sending provider Dr. Landers. We spoke over the phone prior to initiation of transfer. Patient was found to be acutely anemic and requiring blood transfusion as well as pain control medications. He was found to have right chest hematoma on CT scan which I do not have access to imaging of. Plastic surgery Dr. Petersen was made aware of patient's presence at outside hospital and recommended transfer to our ER for his evaluation and further recommendations and treatment. I spoke to Dr. Petersen during the transfer process and prior to patient's arrival. Patient placed in the room 14 for evaluation and further resuscitation. Patient complaining of chest pain on the right side where his hematoma is localized to. No shortness of breath. No nausea but he did get a mg of Zofran prior to arrival. No abdominal pain, fever, chills. Tense thoracic wall hematoma on the right lateral chest with skin discoloration and bruising. Lateral incision sites from surgery appear slightly dehisced. Bleeding from the lateral chest wall as well as into the ANAT drains both right and left-sided. 100 cc and right ANAT, 75cc in left. Tenderness to palpation. No crepitus but compartments are tense. Left chest wall appears dry with no further bleeding and incision sites appear clean and dry without any signs of infection. Patient is hemodynamically stable here. Received 1 unit of packed red cells prior to arrival as well as 1 g of TXA and total 150 mcg of fentanyl and 8 mg of IV Zofran for analgesia and pain control. Patient still in acute pain here given additional 150 mcg of fentanyl. Laboratory studies obtained, chest x-ray ordered. ANAT drains emptied and re-evaluated with ongoing bleeding. Plastic surgeon on way to hospital for evaluation at bedside. Dr. Petersen present at bedside and we evaluated the patient together. Patient had total of oximeter 500 cc of blood between both ANAT drains between transfer and your presentation. He has stabilized for hemodynamics perspective received TXA and blood products in route. Received fentanyl and Dilaudid with analgesia control at this time. Patient taken to the operating room for definitive intervention with plastic surgery. Medical Records Attestation: I reviewed the patient's medical records. Lab Data Attestation: I reviewed the patient's lab results. 06/24/25 04:48 06/24/25 04:48 Labs: Lab Results 06/24/25 Range/Units 04:48 WBC 21.1 H (4.5-10.0) K/mm3 RBC 3.36 L (4.6-6.20) M/mm3 Hgb 10.1 L (14.0-18.0) g/dL Hct 29.9 L (42.0-52.0) % MCV 89.0 (80-100) fl MCH 30.1 (26-34) pg MCHC 33.8 (32-36) g/dl RDW 12.8 (11.5-14.5) % Plt Count 334 (150-375) k/mm3 MPV 11.1 H (7.4-10.4) fl Immature Gran % (Auto) 0.8 H (0-0.5) % Neut % (Auto) 89.9 H (45.5-73.1) % Lymph % (Auto) 3.7 L (18.3-44.2) % Turner % (Auto) 5.4 (2.6-8.5) % Eos % (Auto) 0.0 (0-4.4) % Baso % (Auto) 0.2 (0.2-1.2) % Lymph # (Auto) 0.78 L (0.9-3.2) K/mm3 Turner # (Auto) 1.1 H (0.1-0.6) K/mm3 Eos # (Auto) 0.0 (0-0.3) K/mm3 Baso # (Auto) 0.1 (0.0-0.1) K/mm3 Abs Immat Gran (auto) 0.17 H (0.00-0.031) K/mm3 Absolute Neuts (auto) 19.0 H (1.3-6.7) K/mm3 Absolute Nucleated RBC 0.000 (0.0-0.012) K/mm3 Nucleated RBC % 0.0 (0.0-0.2) % PT 15.4 H (11.1-14.7) Seconds INR 1.2 APTT 22.0 L (22.3-36.8) Seconds Sodium 134 L (137-145) mmol/L Potassium 4.6 (3.4-5.0) mmol/L Chloride 103 (98-107) mmol/L Carbon Dioxide 19 L (22-30) mmol/L Anion Gap 12 (4-12) mmol/L BUN 13 (9-20) mg/dL Creatinine 0.81 (0.7-1.3) mg/dL Estim Creat Clear Calc 145 ml/min Estimated GFR > 60 (59 - ) Glucose 207 H (65-110) mg/dL Calcium 8.3 L (8.4-10.2) mg/dL Total Bilirubin 0.9 (0.2-1.3) mg/dL AST 27 (17-59) U/L ALT 29 (6-50) U/L Alkaline Phosphatase 105 (38-126) U/L Total Protein 5.7 L (6.3-8.2) g/dL Albumin 3.5 (3.5-5.1) g/dL Blood Type A Negative Antibody Screen Negative Imaging Data Attestation: I personally reviewed and interpreted this imaging study as follows: My impression: Impressions Chest X-Ray 06/24/25 06:04 IMPRESSION: 1. No acute cardiopulmonary findings given portable technique. Critical Care Time Critical Care Time Critical Care Time: Yes Total Critical Care Time: 35 Discharge Plan Discharge Clinical Impression: Post-operative haemorrhage, Hematoma of breast following procedure Patient Disposition: Still a Patient Condition: Serious Time of Disposition: 06:46
[2025-06-24] MEDS: fentaNYL CITRATE INJ (*CRX) 100 MCG/2 ML VIAL 200 MCG (04:42)
--- NOTE | 2025-06-24 04:50 | PC.NURSE ---
25mL of blood taken from right sided ANAT drain
[2025-06-24] MEDS: HYDROmorphone HCL INJ (*CRX) 1 MG/ML SYR IV PUSH (04:51)
[2025-06-24 04:53] LABS: Hematocrit 29.9 % (42.0-52.0); Hemoglobin 10.1 g/dL (14.0-18.0); Immature Granulocyte Percent A 0.8 % (0-0.5); Lymphocytes Absolute Auto 0.78 K/mm3 (0.9-3.2); Mean Corpuscular HGB Conc 33.8 g/dl (32-36); Mean Corpuscular Hemoglobin 30.1 pg (26-34); Mean Corpuscular Volume 89.0 fl (80-100); Nucleated Red Blood Cells Absolute Auto 0.000 K/mm3 (0.0-0.012); Nucleated Red Blood Cells Perc 0.0 % (0.0-0.2); Platelet Count Result 334 k/mm3 (150-375); Red Blood Count 3.36 M/mm3 (4.6-6.20); White Blood Count 21.1 K/mm3 (4.5-10.0)
--- OUTSIDE RECORDS SUMMARY | 2025-06-24 04:57 | XMS_ITS | Clinical Summary ---
Author Organization [facility] Address [address] [place] [address] Phone Care Team Providers Care Systems Programmer Name Role Phone Unavailable Primary Care Provider [...] 60 mL 280 mL 10/29/2022 1:59 PM DEVELOPMENT GEOLOGIST 3 Active famotidine (PEPCID) 20 mg tablet Take 1 Tablet (20 mg) by mouth 2 times daily. 60 Tablet 2 10/29/2022 1:59 PM DEVELOPMENT GEOLOGIST 3 Active ondansetron (Zofran) 4 mg Tablet Take 1 Tablet (4 mg) by mouth every 8 hours as needed for Nausea/Vomiting . 50 Tablet 10/29/2022 1:59 PM DEVELOPMENT GEOLOGIST 3 Active sennosides (SENOKOT) 8.6 mg tablet Take 1 Tablet (8.6 mg) by mouth 1 time daily as needed for Constipation. 10 Tablet 10/29/2022 1:59 PM DEVELOPMENT GEOLOGIST 3 Active Active Problems Problem Noted Date [...] COVID-19 VACCINE - EMERGENCY USE AUTHORIZATION, MRNA, [id number](PF) 30 MCG/0.3 ML IM SUSP 09/24/2022,06/28/2021,06/07/2021 (RECOMBIVAX [...] Comments Blood Pressure 127/65 10/29/2022 11:32 AM DEVELOPMENT GEOLOGIST Pulse 76 10/29/2022 11:32 AM DEVELOPMENT GEOLOGIST Temperature 36.6 C (97.8 F) 10/29/2022 8:54 AM DEVELOPMENT GEOLOGIST Respiratory Rate 16 10/29/2022 11:32 AM DEVELOPMENT GEOLOGIST Oxygen Saturation 99% 10/29/2022 11:32 AM DEVELOPMENT GEOLOGIST Inhaled Oxygen Concentration - - Weight 139 kg (306 lb 6.4 oz) 10/28/2022 6:00 AM DEVELOPMENT GEOLOGIST Height 188 cm (6' 2) 10/18/2022 10:05 AM DEVELOPMENT GEOLOGIST Body Mass Index 39.34 10/18/2022 10:05 AM DEVELOPMENT GEOLOGIST Plan of Treatment Health Maintenance Due Date Last Done Comments DIABETES ANNUAL FOOT EXAM 2002 DIABETES ANNUAL RETINAL EXAM 2002 DIABETES HBA1C Q 6 MONTHS 2002 DIABETES MICROALBUMIN ANNUAL SCREEN 2002 LDL CHOLESTEROL ANNUAL 2002 HPV VACCINES (1 - 3-dose SCD M series) 2011 DTAP/TDAP/TD VACCINES (5 - Tdap) 11/17/2011 11/16/2011, 05/09/2000, 05/15/1990, Additional history exists Preventative Visit- Commercial 09/29/2024 INFLUENZA VACCINE (#1) 2025 , 08/03/2019, 07/04/2016 COVID-19 Vaccine (5 - 2024-2 6 season) 2025 09/24/2022, 12/30/2021, 06/28/2021, Additional history exists HEPATITIS B VACCINES Completed 12/25/2000, 06/20/2000, 05/09/2000 Medical Devices Implanted Type Area Director Hair Device Identifier Shelf Expiration Date Model / Serial / Lot Seamguard Endogia 60 Blk [id number] - [id number] Implanted:Qt y: 1 on 10/28/2022 by Maegan Victoria MD at [facility] N/A: Stomach [employer] [id number] 04/30/2025 12BSGTRI 60B / / [id number] Seamguard Endogia 60 Blk [id number] - [id number] Implanted:Qt y: 1 on 10/28/2022 by Maegan Victoria MD at [facility] N/A: Stomach [employer] [id number] 03/09/2025 12BSGTRI 60B / / [id number] Seamguard Endogia 60 Prpl [id number] - [id number] Implanted:Qt y: 1 on 10/28/2022 by Maegan Victoria MD at [facility] N/A: Stomach [employer] [id number] 06/11/2025 12BSGTRI 60P / / [id number] Seamguard Endogia 60 Prpl [id number] - [id number] Implanted:Qt y: 1 on 10/28/2022 by Maegan Victoria MD at [facility] N/A: Stomach [employer] [id number] 06/11/2025 12BSGTRI 60P / / [id number] Seamguard Endogia 60 Prpl [id number] - [id number] Implanted:Qt y: 1 on 10/28/2022 by Maegan Victoria MD at [facility] N/A: Stomach [employer] [id number] 06/11/2025 12BSGTRI 60P / / [id number] Medical Assembly Endoclip Iii 5mm W/Cliplogic [id number] - [id number] Implanted:Qt y: 1 on 10/28/2022 by Maegan Victoria MD at [facility] N/A: Stomach [employer] [id number] 02/26/2025 [id number] / / [id number] Endo Clip Ii 10mm [id number] - [id number] Implanted:Qt y: 1 on 10/28/2022 by Maegan Victoria MD at [facility] N/A: Stomach [employer] [id number] 12/27/2026 [id number] / / [id number] Y Insurance [facility] BENEFIT PLANS RX [facility] [employer] Advance Directives For more information, please contact: [phone] * Full Code (Latest Code Status on File) Date Activated Date Inactivated Comments 10/28/2022 11:06 AM 10/29/2022 4:21 PM * Full Code Date Activated Date Inactivated Comments 10/28/2022 6:14 AM 10/28/2022 11:06 AM
--- OUTSIDE RECORDS SUMMARY | 2025-06-24 04:57 | XMS_ITS | Clinical Summary ---
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
--- OUTSIDE RECORDS SUMMARY | 2025-06-24 04:57 | XMS_ITS | Patient Health Record ---
Author Organization [facility] Address [address] [place] [address] Support Name Relationship Address Phone Edwin Younger Guarantor Unknown [phone] Reason For Referral No Information Medications Medication [...] Start Date Coverage End Date [facility] Benefits [address] [place] [address] [id number] Edwin Younger Self - patient is the insured
--- OUTSIDE RECORDS SUMMARY | 2025-06-24 04:57 | XMS_ITS | Clinical Summary ---
Author Organization [facility] Address [address] [place] [address] Care Team Providers Care Bed And Breakfast Operator Name Role Phone Unavailable Primary Care Provider [...]
--- OUTSIDE RECORDS SUMMARY | 2025-06-24 04:58 | XMS_ITS | Patient Health Record ---
Author Organization [facility] Address [address] [place], [place] [id number] Care Team Providers Care Gyro Compass Tester Name Role Phone TANG SHEPARD Unavailable [phone] Maritza Nava Unavailable Unavailable Reason For Referral No Information Medications Medication SIG (Take, Route, Frequency, Duration) Notes Start Date End Date Status acetaminophen 325 MG / hydrocodone bitartrate 5 MG Oral Tablet [Rainier] ORAL acetaminophen 325 MG / hydrocodone bitartrate 5 MG Oral Tablet [Rainier]Original Medicationacetaminophen 325 MG / hydrocodone bitartrate 5 MG Oral Tablet [Rainier] *Reorder from OggiFinogi for eRx and Interaction Libby 7 Active Plan Of Treatment No Information Insurance Providers Payer Name Payer Address Payer Phone Subscriber Number Group Number Insured Name Patient Relationship to Insured Coverage Start Date [facility]age End [facility] [address] [place], [place] [id number] MICHELLE CARRASCO Self - patient is the insured
[2025-06-24 05:06] LABS: INR 1.2; Prothrombin Time 15.4 Seconds (11.1-14.7)
[2025-06-24 05:07] LABS: Partial Thromboplastin Time 22.0 Seconds (22.3-36.8)
[2025-06-24 05:17] LABS: Alanine Aminotransferase 29 U/L (6-50); Albumin Level 3.5 g/dL (3.5-5.1); Alkaline Phosphatase 105 U/L (38-126); Anion Gap 12 mmol/L (4-12); Aspartate Amino Transferase 27 U/L (17-59); Bilirubin,Total 0.9 mg/dL (0.2-1.3); Blood Urea Nitrogen 13 mg/dL (9-20); Calcium 8.3 mg/dL (8.4-10.2); Carbon Dioxide 19 mmol/L (22-30); Chloride 103 mmol/L (98-107); Estimated CRCL calculation 145 ml/min; Estimated Glomerular Filt Rate > 60; Glucose 207 mg/dL (65-110); Potassium 4.6 mmol/L (3.4-5.0); Sodium 134 mmol/L (137-145); Total Protein 5.7 g/dL (6.3-8.2)
--- OUTSIDE RECORDS SUMMARY | 2025-06-24 05:19 | XMS_ITS | Clinical Summary ---
Author Organization [facility] Address [address] [place] [address] Care Team Providers Care Welder Plastic Name Role Phone Unavailable Primary Care Provider [...]
--- OUTSIDE RECORDS SUMMARY | 2025-06-24 05:19 | XMS_ITS | Clinical Summary ---
Author Organization [facility] Address [address] [place] [address] Phone Care Team Providers Care Publications Distribution Clerk Name Role Phone Unavailable Primary Care Provider [...] 60 mL 280 mL 10/29/2022 1:59 PM ELECTRONICS PRODUCTION SUPERVISOR 3 Active famotidine (PEPCID) 20 mg tablet Take 1 Tablet (20 mg) by mouth 2 times daily. 60 Tablet 2 10/29/2022 1:59 PM ELECTRONICS PRODUCTION SUPERVISOR 3 Active ondansetron (Zofran) 4 mg Tablet Take 1 Tablet (4 mg) by mouth every 8 hours as needed for Nausea/Vomiting . 50 Tablet 10/29/2022 1:59 PM ELECTRONICS PRODUCTION SUPERVISOR 3 Active sennosides (SENOKOT) 8.6 mg tablet Take 1 Tablet (8.6 mg) by mouth 1 time daily as needed for Constipation. 10 Tablet 10/29/2022 1:59 PM ELECTRONICS PRODUCTION SUPERVISOR 3 Active Active Problems Problem Noted Date [...] COVID-19 VACCINE - EMERGENCY USE AUTHORIZATION, MRNA, [id number](PF) 30 MCG/0.3 ML IM SUSP 09/24/2022,06/28/2021,06/07/2021 (RECOMBIVAX [...] Comments Blood Pressure 127/65 10/29/2022 11:32 AM ELECTRONICS PRODUCTION SUPERVISOR Pulse 76 10/29/2022 11:32 AM ELECTRONICS PRODUCTION SUPERVISOR Temperature 36.6 C (97.8 F) 10/29/2022 8:54 AM ELECTRONICS PRODUCTION SUPERVISOR Respiratory Rate 16 10/29/2022 11:32 AM ELECTRONICS PRODUCTION SUPERVISOR Oxygen Saturation 99% 10/29/2022 11:32 AM ELECTRONICS PRODUCTION SUPERVISOR Inhaled Oxygen Concentration - - Weight 139 kg (306 lb 6.4 oz) 10/28/2022 6:00 AM ELECTRONICS PRODUCTION SUPERVISOR Height 188 cm (6' 2) 10/18/2022 10:05 AM ELECTRONICS PRODUCTION SUPERVISOR Body Mass Index 39.34 10/18/2022 10:05 AM ELECTRONICS PRODUCTION SUPERVISOR Plan of Treatment Health Maintenance Due Date [...] 06/20/2000, 05/09/2000 Medical Devices Implanted Type Area Heat Treat Operator Device Identifier Shelf Expiration Date Model / Serial / Lot Seamguard Endogia 60 Blk [id number] - [id number] Implanted:Qt y: 1 on 10/28/2022 by Maegan Victoria MD at [facility] N/A: Stomach [employer] [id number] 04/30/2025 12BSGTRI 60B / / [id number] Seamguard Endogia 60 Blk [id number] - [id number] Implanted:Qt y: 1 on 10/28/2022 by Maegan Victoria MD at [facility] N/A: Stomach [employer] [id number] 03/09/2025 12BSGTRI 60B / / [id number] Seamguard Endogia 60 Prpl [id number] - [id number] Implanted:Qt y: 1 on 10/28/2022 by Maegan Victoria MD at [facility] N/A: Stomach [employer] [id number] 06/11/2025 12BSGTRI 60P / / [id number] Seamguard Endogia 60 Prpl [id number] - [id number] Implanted:Qt y: 1 on 10/28/2022 by Maegan Victoria MD at [facility] N/A: Stomach [employer] [id number] 06/11/2025 12BSGTRI 60P / / [id number] Seamguard Endogia 60 Prpl [id number] - [id number] Implanted:Qt y: 1 on 10/28/2022 by Maegan Victoria MD at [facility] N/A: Stomach [employer] [id number] 06/11/2025 12BSGTRI 60P / / [id number] Compressor Operator Adjuster Endoclip Iii 5mm W/Cliplogic [id number] - [id number] Implanted:Qt y: 1 on 10/28/2022 by Maegan Victoria MD at [facility] N/A: Stomach [employer] [id number] 02/26/2025 [id number] / / [id number] Endo Clip Ii 10mm [id number] - [id number] Implanted:Qt y: 1 on 10/28/2022 by Maegan Victoria MD at [facility] N/A: Stomach [employer] [id number] 12/27/2026 [id number] / / [id number] Y Insurance [facility] BENEFIT PLANS RX [facility] [employer] Advance Directives For more information, please contact: [phone] * Full Code (Latest Code Status on File) Date Activated Date Inactivated Comments 10/28/2022 11:06 AM 10/29/2022 4:21 PM * Full Code Date Activated Date Inactivated Comments 10/28/2022 6:14 AM 10/28/2022 11:06 AM
--- OUTSIDE RECORDS SUMMARY | 2025-06-24 05:19 | XMS_ITS | Clinical Summary ---
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
--- NOTE | 2025-06-24 06:20 | WPDANESEPP ---
Anes - Eval Pre Procedure Procedure: Operation Date: 06/24/25 06:30 Proposed Procedures p I&D Breast Hematoma - Howard Petersen MD Date/Time: 06/24/25 06:20 Pre Op Diagnosis: R CHEST WALL HEMATOMA/DR. BUTCHER PT Patient Data Age: 39 Gender: M Height: 1.88 m Weight: 119.2 kg Last Vital Signs Temp 37.1 C 06/24/25 05:45 Pulse 87 06/24/25 05:46 Resp 28 H 06/24/25 05:46 BP 122/68 06/24/25 05:46 Pulse Ox 99 06/24/25 05:46 O2 Del Method Room Air 06/24/25 04:07 Allergies Allergy/AdvReac Type Severity Reaction Status Date / Time No Known Allergies Allergy Verified 06/22/25 08:03 Home Medications ?Medication ?Instructions ?Recorded ?Confirmed ?Type celecoxib 200 mg capsule 200 mg PO HS 02/10/25 06/22/25 History cranitine 1 tbsp PO DAILY 02/10/25 06/22/25 History creatine monohydrate 5,000 mg oral 5,000 mg PO DAILY 02/10/25 06/22/25 History powder packet cyanocobalamin (vitamin B-12) 1,000 mcg PO DAILY 02/10/25 06/22/25 History 1,000 mcg tablet (Vitamin B-12) diphenhydramine HCl 25 mg capsule 25 mg PO HS 02/10/25 06/22/25 History (Aler-Cap) doxycycline monohydrate 40 mg 40 mg PO DAILY 02/10/25 06/15/25 History capsule,immediate - delay release (Oracea) Held on 06/22/25. Instructions: Resume on 06/27/25. hydrocodone 5 mg-acetaminophen 325 1 tablet PO Q6H PRN pain 02/10/25 06/15/25 History mg tablet ruzedqiv-tdjxsare-xpgm 45 mg-folic 1 cap PO DAILY 02/10/25 06/22/25 History acid 800 mcg-vit K 120 mcg capsule (Bariatric Multivitamins) nutrafol 4 cap PO HS 02/10/25 06/22/25 History omeprazole 20 mg capsule,delayed 20 mg PO HS 02/10/25 06/22/25 History release testosterone enanthate 75 mg/0.5 75 mg subcut WEEKLY 02/10/25 06/15/25 History mL subcutaneous auto-injector (Xyosted) cephalexin 500 mg capsule 500 mg PO Q8H #21 caps 06/22/25 Rx Laboratory Tests 06/24/25 04:48 WBC 21.1 H K/mm3 (4.5-10.0) RBC 3.36 L M/mm3 (4.6-6.20) Hgb 10.1 L g/dL (14.0-18.0) Hct 29.9 L % (42.0-52.0) MCV 89.0 fl (80-100) MCH 30.1 pg (26-34) MCHC 33.8 g/dl (32-36) RDW 12.8 % (11.5-14.5) Plt Count 334 k/mm3 (150-375) MPV 11.1 H fl (7.4-10.4) Immature Gran % (Auto) 0.8 H % (0-0.5) Neut % (Auto) 89.9 H % (45.5-73.1) Lymph % (Auto) 3.7 L % (18.3-44.2) Wilcox % (Auto) 5.4 % (2.6-8.5) Eos % (Auto) 0.0 % (0-4.4) Baso % (Auto) 0.2 % (0.2-1.2) Lymph # (Auto) 0.78 L K/mm3 (0.9-3.2) Wilcox # (Auto) 1.1 H K/mm3 (0.1-0.6) Eos # (Auto) 0.0 K/mm3 (0-0.3) Baso # (Auto) 0.1 K/mm3 (0.0-0.1) Abs Immat Gran (auto) 0.17 H K/mm3 (0.00-0.031) Absolute Neuts (auto) 19.0 H K/mm3 (1.3-6.7) Absolute Nucleated RBC 0.000 K/mm3 (0.0-0.012) Nucleated RBC % 0.0 % (0.0-0.2) PT 15.4 H Seconds (11.1-14.7) INR 1.2 APTT 22.0 L Seconds (22.3-36.8) Sodium 134 L mmol/L (137-145) Potassium 4.6 mmol/L (3.4-5.0) Chloride 103 mmol/L (98-107) Carbon Dioxide 19 L mmol/L (22-30) Anion Gap 12 mmol/L (4-12) BUN 13 mg/dL (9-20) Creatinine 0.81 mg/dL (0.7-1.3) Estim Creat Clear Calc 145 ml/min Estimated GFR > 60 (59 - ) Glucose 207 H mg/dL (65-110) Calcium 8.3 L mg/dL (8.4-10.2) Total Bilirubin 0.9 mg/dL (0.2-1.3) AST 27 U/L (17-59) ALT 29 U/L (6-50) Alkaline Phosphatase 105 U/L (38-126) Total Protein 5.7 L g/dL (6.3-8.2) Albumin 3.5 g/dL (3.5-5.1) Blood Type A Negative Antibody Screen Negative Patient hx anesthesia problems: none Family hx anesthesia problems: none Results Review: All pre-operative results and documents have been reviewed as part of the pre-operative evaluation. [facility] Past Medical History Medical History (Updated 06/24/25 @ 06:21 by Gianna Carroll CRNA) Obesity (BMI 30-39.9) Social History Social History Smoking packs per day: 1 Smoking cigarettes per day: 20.0 Years smoked: 13 Smoking pack-years: 13.00 Smoking status: Former smoker Tobacco type: cigarettes Smoking end date: 03/13/14 Alcohol intake: current Living arrangements: with family Spiritual care concerns: No Exam Day of Procedure 06/24/25 06:20
--- NOTE | 2025-06-24 06:41 | WPDANESEPPF ---
Anes - Initial Pre Proc Eval Procedure: Operation Date: 06/24/25 06:30 Proposed Procedures p I&D Breast Hematoma - Howard Petersen MD Date/Time: 06/24/25 06:41 Surgeon: Howard Petersen MD Pre Op Diagnosis: R CHEST WALL HEMATOMA/DR. BUTCHER PT Patient Data Age: 39 Gender: M Height: 1.88 m Weight: 119.2 kg Last Vital Signs Temp 37.1 C 06/24/25 05:45 Pulse 87 06/24/25 05:46 Resp 28 H 06/24/25 05:46 BP 122/68 06/24/25 05:46 Pulse Ox 99 06/24/25 05:46 O2 Del Method Room Air 06/24/25 04:07 Allergies Allergy/AdvReac Type Severity Reaction Status Date / Time No Known Allergies Allergy Verified 06/22/25 08:03 Home Medications ?Medication ?Instructions ?Recorded ?Confirmed ?Type celecoxib 200 mg capsule 200 mg PO HS 02/10/25 06/22/25 History cranitine 1 tbsp PO DAILY 02/10/25 06/22/25 History creatine monohydrate 5,000 mg oral 5,000 mg PO DAILY 02/10/25 06/22/25 History powder packet cyanocobalamin (vitamin B-12) 1,000 mcg PO DAILY 02/10/25 06/22/25 History 1,000 mcg tablet (Vitamin B-12) diphenhydramine HCl 25 mg capsule 25 mg PO HS 02/10/25 06/22/25 History (Aler-Cap) doxycycline monohydrate 40 mg 40 mg PO DAILY 02/10/25 06/15/25 History capsule,immediate - delay release (Oracea) Held on 06/22/25. Instructions: Resume on 06/27/25. hydrocodone 5 mg-acetaminophen 325 1 tablet PO Q6H PRN pain 02/10/25 06/15/25 History mg tablet tlzqqgjw-huvizhhf-jvjw 45 mg-folic 1 cap PO DAILY 02/10/25 06/22/25 History acid 800 mcg-vit K 120 mcg capsule (Bariatric Multivitamins) nutrafol 4 cap PO HS 02/10/25 06/22/25 History omeprazole 20 mg capsule,delayed 20 mg PO HS 02/10/25 06/22/25 History release testosterone enanthate 75 mg/0.5 75 mg subcut WEEKLY 02/10/25 06/15/25 History mL subcutaneous auto-injector (Xyosted) cephalexin 500 mg capsule 500 mg PO Q8H #21 caps 06/22/25 Rx Laboratory Tests 06/24/25 04:48 WBC 21.1 H K/mm3 (4.5-10.0) RBC 3.36 L M/mm3 (4.6-6.20) Hgb 10.1 L g/dL (14.0-18.0) Hct 29.9 L % (42.0-52.0) MCV 89.0 fl (80-100) MCH 30.1 pg (26-34) MCHC 33.8 g/dl (32-36) RDW 12.8 % (11.5-14.5) Plt Count 334 k/mm3 (150-375) MPV 11.1 H fl (7.4-10.4) Immature Gran % (Auto) 0.8 H % (0-0.5) Neut % (Auto) 89.9 H % (45.5-73.1) Lymph % (Auto) 3.7 L % (18.3-44.2) Greenlee % (Auto) 5.4 % (2.6-8.5) Eos % (Auto) 0.0 % (0-4.4) Baso % (Auto) 0.2 % (0.2-1.2) Lymph # (Auto) 0.78 L K/mm3 (0.9-3.2) Greenlee # (Auto) 1.1 H K/mm3 (0.1-0.6) Eos # (Auto) 0.0 K/mm3 (0-0.3) Baso # (Auto) 0.1 K/mm3 (0.0-0.1) Abs Immat Gran (auto) 0.17 H K/mm3 (0.00-0.031) Absolute Neuts (auto) 19.0 H K/mm3 (1.3-6.7) Absolute Nucleated RBC 0.000 K/mm3 (0.0-0.012) Nucleated RBC % 0.0 % (0.0-0.2) PT 15.4 H Seconds (11.1-14.7) INR 1.2 APTT 22.0 L Seconds (22.3-36.8) Sodium 134 L mmol/L (137-145) Potassium 4.6 mmol/L (3.4-5.0) Chloride 103 mmol/L (98-107) Carbon Dioxide 19 L mmol/L (22-30) Anion Gap 12 mmol/L (4-12) BUN 13 mg/dL (9-20) Creatinine 0.81 mg/dL (0.7-1.3) Estim Creat Clear Calc 145 ml/min Estimated GFR > 60 (59 - ) Glucose 207 H mg/dL (65-110) Calcium 8.3 L mg/dL (8.4-10.2) Total Bilirubin 0.9 mg/dL (0.2-1.3) AST 27 U/L (17-59) ALT 29 U/L (6-50) Alkaline Phosphatase 105 U/L (38-126) Total Protein 5.7 L g/dL (6.3-8.2) Albumin 3.5 g/dL (3.5-5.1) Blood Type A Negative Antibody Screen Negative Patient hx anesthesia problems: none Family hx anesthesia problems: none Results Review: All pre-operative results and documents have been reviewed as part of the pre-operative evaluation. [facility] Past Medical History Medical History (Updated 06/24/25 @ 06:21 by Gianna Carroll CRNA) Obesity (BMI 30-39.9) Social History Social History Smoking packs per day: 1 Smoking cigarettes per day: 20.0 Years smoked: 13 Smoking pack-years: 13.00 Smoking status: Former smoker Tobacco type: cigarettes Smoking end date: 03/13/14 Alcohol intake: current Living arrangements: with family Spiritual care concerns: No Anes - Eval Final PreProcedure Day of Procedure 06/24/25 06:41 Patient weight: obese Heart: regular rate and rhythm Lungs: decreased breath sounds Airway: Mallampati scale class II Neurological: alert and oriented Last oral intake: >/= 8 hours ASA classification: III Emergent: yes Anesthetic plan: proceed Anesthesia type and monitoring: general LMA and standard monitoring Results Review: All pre-operative results and documents have been reviewed as part of the pre-operative evaluation. Informed Consent: The patient's anesthetic plan and its attendant risks and benefits were discussed with the patient/family/POA. Questions were solicited and answers provided to the satisfaction of the patient/family/POA.
[2025-06-24] MEDS: LIDO 1%/EPINEPHRINE 1:100,000 50 ML VIAL 10 ML INFILTRATE (07:12)
--- NOTE | 2025-06-24 07:48 | P.OP_ITS ---
Procedure Note - Detailed Date of Procedure 06/24/25 Pre-op Diagnosis R CHEST WALL HEMATOMA Post-op Diagnosis Same Procedure Performed exploration right breast/chest wound, hematoma evacuation and hemostasis Surgeon Howard Petersen MD Anesthesia General Description of Procedure Patient was initially seen in the emergency room where consent form was signed in the right breast was marked. Patient was taken back to the operating room and placed on the table in the supine position. Time-out was performed with Anesthesia, surgeon, and staff agreeing on patient's name, site, and surgery to be performed. SCDs were placed on the lower extremities and inflated. After general anesthesia was administered the right breast was prepped and draped in usual sterile fashion. I proceeded with using a 15 blade to make an incision in the lower lateral surgical incision extending midway up his lateral torso plasty incision to allow exposure. Approximately 800 g of blood clot was evacuated from the chest and lateral torso cavity. After irrigation with normal saline identified an arterial vessel bleeding in the right chest down near chest wall. This was initially cauterized and then oversewn with 3-0 Vicryl suture. I continued with further irrigation and exploration. No further significant bleeding was identified. Further hemostasis with Bovie cautery was used as needed. Tony powder was placed in the right torso area for additional hemostasis. I proceeded with closure using 2-0 and 3-0 Vicryl suture for dermis. 3-0 nylon was used for skin. The nipple appeared viable with good cap refill. I injected 20 cc of 1% lidocaine with epinephrine and 0.5% Marcaine plain along the inframammary fold and anterior axillary line. total length of closure [id number] A dressing of Mastisol, Steri-Strips was used for the majority of the incision and Xeroform was placed around the nipple and lower lateral incision due to ecchymosis and some blistering. 4x4s, ABDs and abdominal binder was then applied. The patient was awakened from anesthesia and transferred to the recovery room in stable condition. Complications: None Estimated blood loss: 200 cc during the case Disposition: Patient tolerated the procedure well and will be observed with possible discharge later today [facility] [place] Billing Surgery - Charge Forward: Surgery Billing ([id number] [id number] )
[2025-06-24] MEDS: LACTATED RINGERS 1,000 ML 30 ML IV CONT ×2 (07:49→08:36)
[2025-06-24 08:23] LABS: Hematocrit 27.9 % (42.0-52.0); Hemoglobin 9.5 g/dL (14.0-18.0); Mean Corpuscular HGB Conc 34.1 g/dl (32-36); Mean Corpuscular Hemoglobin 30.4 pg (26-34); Mean Corpuscular Volume 89.1 fl (80-100); Platelet Count Result 289 k/mm3 (150-375); Red Blood Count 3.13 M/mm3 (4.6-6.20); White Blood Count 20.7 K/mm3 (4.5-10.0)
[2025-06-24 08:34] LABS: INR 1.2; Prothrombin Time 15.0 Seconds (11.1-14.7)
[2025-06-24 08:35] LABS: Partial Thromboplastin Time 24.1 Seconds (22.3-36.8)
[2025-06-24 09:08] LABS: Anion Gap 6 mmol/L (4-12); Blood Urea Nitrogen 13 mg/dL (9-20); Calcium 8.3 mg/dL (8.4-10.2); Carbon Dioxide 25 mmol/L (22-30); Chloride 102 mmol/L (98-107); Estimated CRCL calculation 114 ml/min; Estimated Glomerular Filt Rate > 60; Glucose 168 mg/dL (65-110); Potassium 5.7 mmol/L (3.4-5.0); Sodium 133 mmol/L (137-145)
[2025-06-24 11:21] LABS: Potassium 5.1 mmol/L (3.4-5.0)
== END 2025-06-24 12:34 | disposition home or self-care (01) ==
LOC: ANHED 05:13 → ANHSURGERY 05:17
PROVIDERS: Emergency Provider Student in an Organized Health Care Education/Training Program; Visit Provider Plastic Surgery
PROC: (CPT 10140; principal; 2025-06-24 06:30)
DX: L76.34 Postprocedural seroma of skin and subcutaneous tissue following other procedure (principal); Y83.8 Other surgical procedures as the cause of abnormal reaction of the patient, or of later complication, without mention of misadventure at the time of the procedure; E66.9 Obesity, unspecified; Z68.33 Body mass index [BMI] 33.0-33.9, adult; Z79.1 Long term (current) use of non-steroidal anti-inflammatories (NSAID); Z79.891 Long term (current) use of opiate analgesic; Z98.890 Other specified postprocedural states; Z98.84 Bariatric surgery status; Z87.891 Personal history of nicotine dependence
CPT/HCPCS: 10140; 36415; 71045; 80048; 80053; 84132; 85025; 85027; 85610; 85730; 86850; 86900; 86901; 96374; 96375; 99285; J1100; J1171; J2003; J2004; J2250; J2405; J2704; J3010; J7120

== ENCOUNTER 2025-06-27 16:48 | Outpatient (CLI) | payer OTHER, SELFPAY ==
--- NOTE | ~2025-06-27 | US_ITS ---
EXAMINATION: US venous doppler LE , 06/27/2025 17:01 CDT HISTORY: L98.7 - Excessive and redundant skin and subcutaneous tissue Comparison: None Technique: Reeder-scale and color Doppler images were attempted of the lower saphenofemoral junction, common femoral vein,superficial femoral vein, proximal deep femoral vein, proximal deep femoral vein, popliteal vein and posterior tibial veins. Findings: Deep Venous System:Normal flow, augmentation and compressibility. No echogenic thrombus identified. The contralateral saphenofemoral junction appears unremarkable. Superficial Venous SystemNo superficial thrombophlebitis. Soft tissues: Soft tissues are unremarkable. Impression: Negative for DVT. Reviewed, dictated and finalized at location P. Impression: Negative for DVT.
--- OUTSIDE RECORDS SUMMARY | 2025-06-27 17:08 | XMS_ITS | Clinical Summary ---
Author Organization [facility] Address [address] [place] [address] Phone Care Team Providers Care Cytology Laboratory Manager Name Role Phone Unavailable Primary Care Provider [...] 60 mL 280 mL 10/29/2022 1:59 PM APPLIANCE PARTS COUNTER CLERK 3 Active famotidine (PEPCID) 20 mg tablet Take 1 Tablet (20 mg) by mouth 2 times daily. 60 Tablet 2 10/29/2022 1:59 PM APPLIANCE PARTS COUNTER CLERK 3 Active ondansetron (Zofran) 4 mg Tablet Take 1 Tablet (4 mg) by mouth every 8 hours as needed for Nausea/Vomiting . 50 Tablet 10/29/2022 1:59 PM APPLIANCE PARTS COUNTER CLERK 3 Active sennosides (SENOKOT) 8.6 mg tablet Take 1 Tablet (8.6 mg) by mouth 1 time daily as needed for Constipation. 10 Tablet 10/29/2022 1:59 PM APPLIANCE PARTS COUNTER CLERK 3 Active Active Problems Problem Noted Date [...] COVID-19 VACCINE - EMERGENCY USE AUTHORIZATION, MRNA, [id number](PF) 30 MCG/0.3 ML IM SUSP 09/24/2022,06/28/2021,06/07/2021 (RECOMBIVAX [...] Comments Blood Pressure 127/65 10/29/2022 11:32 AM APPLIANCE PARTS COUNTER CLERK Pulse 76 10/29/2022 11:32 AM APPLIANCE PARTS COUNTER CLERK Temperature 36.6 C (97.8 F) 10/29/2022 8:54 AM APPLIANCE PARTS COUNTER CLERK Respiratory Rate 16 10/29/2022 11:32 AM APPLIANCE PARTS COUNTER CLERK Oxygen Saturation 99% 10/29/2022 11:32 AM APPLIANCE PARTS COUNTER CLERK Inhaled Oxygen Concentration - - Weight 139 kg (306 lb 6.4 oz) 10/28/2022 6:00 AM APPLIANCE PARTS COUNTER CLERK Height 188 cm (6' 2) 10/18/2022 10:05 AM APPLIANCE PARTS COUNTER CLERK Body Mass Index 39.34 10/18/2022 10:05 AM APPLIANCE PARTS COUNTER CLERK Plan of Treatment Health Maintenance Due Date Last Done Comments DIABETES ANNUAL FOOT EXAM 2002 DIABETES ANNUAL RETINAL EXAM 2002 DIABETES HBA1C Q 6 MONTHS 2002 DIABETES MICROALBUMIN ANNUAL SCREEN 2002 LDL CHOLESTEROL ANNUAL 2002 HPV VACCINES (1 - 3-dose SCD M series) 2011 DTAP/TDAP/TD VACCINES (5 - Tdap) 11/17/2011 11/16/2011, 05/09/2000, 05/15/1990, Additional history exists INFLUENZA VACCINE (#1) 2025 , 08/03/2019, 07/04/2016 COVID-19 Vaccine ( - 2024-2 6 season) 2025 09/24/2022, 12/30/2021, 06/28/2021, Additional history exists HEPATITIS B VACCINES Completed 12/25/2000, 06/20/2000, 05/09/2000 Medical Devices Implanted [facility] Device Identifier Shelf Expiration Date Model / Serial / Lot Seamguard Endogia 60 Blk [id number] - [id number] Implanted:Qt y: 1 on 10/28/2022 by Maegan Victoria MD at [facility] N/A: Stomach [employer] [id number] 04/30/2025 12BSGTRI 60B / / [id number] Seamguard Endogia 60 Blk [id number] - [id number] Implanted:Qt y: 1 on 10/28/2022 by Maegan Victoria MD at [facility] N/A: Stomach [employer] [id number] 03/09/2025 12BSGTRI 60B / / [id number] Seamguard Endogia 60 Prpl [id number] - [id number] Implanted:Qt y: 1 on 10/28/2022 by Maegan Victoria MD at [facility] N/A: Stomach [employer] [id number] 06/11/2025 12BSGTRI 60P / / [id number] Seamguard Endogia 60 Prpl [id number] - [id number] Implanted:Qt y: 1 on 10/28/2022 by Maegan Victoria MD at [facility] N/A: Stomach [employer] [id number] 06/11/2025 12BSGTRI 60P / / [id number] Seamguard Endogia 60 Prpl [id number] - [id number] Implanted:Qt y: 1 on 10/28/2022 by Maegan Victoria MD at [facility] N/A: Stomach [employer] [id number] 06/11/2025 12BSGTRI 60P / / [id number] Behavioral Health Assistant Endoclip Iii 5mm W/Cliplogic [id number] - [id number] Implanted:Qt y: 1 on 10/28/2022 by Maegan Victoria MD at [facility] N/A: Stomach [employer] [id number] 02/26/2025 [id number] / / [id number] Endo Clip Ii 10mm [id number] - [id number] Implanted:Qt y: 1 on 10/28/2022 by Maegan Victoria MD at [facility] N/A: Stomach [employer] [id number] 12/27/2026 [id number] / / [id number] [place] [address] [place] [address] BENEFIT PLANS RX [facility] [employer] Advance Directives For more information, please contact: [phone] * Full Code (Latest Code Status on File) Date Activated Date Inactivated Comments 10/28/2022 11:06 AM 10/29/2022 4:21 PM * Full Code Date Activated Date Inactivated Comments 10/28/2022 6:14 AM 10/28/2022 11:06 AM
--- OUTSIDE RECORDS SUMMARY | 2025-06-27 17:08 | XMS_ITS | Clinical Summary ---
Author Organization [facility] Address [address] [place] [address] Care Team Providers Care Cogeneration Technician Name Role Phone Maritza Nava NP Primary Care Provider + Social History Tobacco Use Types Packs/Day Years Used Date Smoking Tobacco: Never Assessed Sex and Gender Information Value Date Recorded Sex Assigned at Not on file Legal Sex Male 9:32 PM [employer] Gender Identity Not on file Sexual Orientation [...] patient's age to complete this topic Insurance [employer] [facility] Care Teams Cogeneration Technician Relationship Specialty Start Date End Date Maritza Nava NP [address] [place] [address] PCP - General FAMILY PRACTICE 02/28/20
--- OUTSIDE RECORDS SUMMARY | 2025-06-27 17:08 | XMS_ITS | Clinical Summary ---
Author Organization [facility] Address [address] [place] [address] Care Team Providers Care Publicity Director Name Role Phone Unavailable Primary Care Provider [...]
== END 2025-06-27 16:49 | disposition home or self-care (01) ==
PROVIDERS: Visit Provider Physician Assistant Surgical
DX: L98.7 Excessive and redundant skin and subcutaneous tissue (principal)
CPT/HCPCS: 93971